=== PATIENT | male | born 1965 | race African-American/Black ===

== ENCOUNTER 2020-08-28 08:21 | Outpatient (CLI) | payer MEDICARE, SELFPAY ==
--- NOTE | ~2020-08-28 | XR_ITS ---
EXAMINATION: XR knee LT min 4V, XR knee RT min 4V DATE: 08/28/2020 09:39 INDICATION: Osteoarthritis TECHNIQUE: 1. Weight bearing anteroposterior, [place], sunrise, and lateral views of the left knee were obtain ed 2. Weight bearing anteroposterior, [place], sunrise, and lateral views of the right knee were obtai bina COMPARISON: None. FINDINGS: Left total knee arthroplasty without patellar resurfacing which is in essentially anatomic alignment. Normal alignment at the right knee. No fracture. Joint spaces are normal. No joint effusion at eithe r knee. Soft tissues are unremarkable. IMPRESSION: 1. Normal right knee. 2. Left total knee arthroplasty in essentially anatomic alignment. No left knee joint effusion or acu te osseous abnormality. Reviewed, dictated and finalized at location A. IMPRESSION: 1. Normal right knee. 2. Left total knee arthroplasty in essentially anatomic alignment. No left knee joint effusion or acute osseous abnormality.
--- NOTE | ~2020-08-28 | XR_ITS ---
EXAMINATION: XR sacroiliac joints min 3V, XR lumbar spine min 4V DATE: 08/28/2020 09:39 INDICATION: Osteoarthritis TECHNIQUE: 1. 5 views of the lumbar spine were obtained including anteroposterior, lateral, left and right obliq ue views and cone-down lateral lumbosacral projections. 2. Anteroposterior and left and right oblique views of the sacroiliac joints were obtained. COMPARISON: None. FINDINGS: Lumbar spine: 4 mm retrolisthesis L5 on S1. 4 mm left lateral listhesis L3 on L4. Straightening of the normal lumba r lordosis. Vertebral body heights are normal. Moderate disc height loss at L3-L4 and L4-L5. Mild dis c height loss at L2-L3 and L5-S1. No pars interarticularis defects. Multilevel mild lower lumbar pred ominant facet osteoarthritis. Mild bilateral hip osteoarthritis. IVC filter in expected position with proximal tip at the level of the inferior endplate of L2. Sacroiliac joints: There is mild widening of portions of the bilateral sacral iliac joints with erosions of the articula r cortices and surrounding subarticular sclerosis, right greater than left consistent with asymmetric mild to moderate left and moderate right sacroiliitis. Anastomotic suture line at the distal sigmoid colon. IMPRESSION: 1. Moderate lumbar spondylosis. 2. Mild to moderate left and moderate right sacroiliitis. Differential would include osteoarthritis, reactive versus psoriatic arthritis and gout. Enteropathic arthritis related to Crohn's disease or ul cerative colitis, ankylosing spondylitis and rheumatoid arthritis are also in the differential but ty pically present with a more symmetric pattern of disease. 3. IVC filter in expected position. Reviewed, dictated and finalized at location A. IMPRESSION: 1. Moderate lumbar spondylosis. 2. Mild to moderate left and moderate right sacroiliitis. Differential would in clude osteoarthritis, reactive versus psoriatic arthritis and gout. Enteropathi c arthritis related to Crohn's disease or ulcerative colitis, ankylosing spondy litis and rheumatoid arthritis are also in the differential but typically prese nt with a more symmetric pattern of disease. 3. IVC filter in expected position.
--- NOTE | ~2020-08-28 | XR_ITS ---
EXAMINATION: HAND-DANETTE ARTHRITIS 3+VIEWS DATE: 08/28/2020 09:39 INDICATION: Osteoarthritis TECHNIQUE: Posteroanterior, lateral, and oblique views of the left and of the right hands as well as a ballcatchers view of both hands were obtained. COMPARISON: None. FINDINGS: Right hand and wrist: Internally fixed right wrist arthrodesis with dorsal plate fixed with 3 screws to the mid to proximal aspect of the third metacarpal, from a screw at the distal aspect of the capitate and 3 additional s crews at the distal radius. The plate obscures portions of the central right carpus. There appears be osseous fusion to the lunate. There appears be residual lucency between the right scaphoid and dista l radius. No acute fracture. Polyarticular osteoarthritis, severe at the distal radioulnar, third met acarpophalangeal and second distal interphalangeal joint and moderate severity at the triscaphe, firs t carpometacarpal, third metacarpophalangeal and at the remaining distal interphalangeal joints and m ild at the remaining metacarpophalangeal and interphalangeal joints. Left hand and wrist: Left fifth mallet finger deformity. Otherwise normal alignment at the left hand and wrist. No fractur e. Severe osteoarthritis at the left distal radioulnar joint. Moderate osteoarthritis at the left fir st carpometacarpal and second and fifth distal interphalangeal joints and mild at the left wrist, tri scaphe and many of the remaining metacarpophalangeal and interphalangeal joints. IMPRESSION: 1. Right wrist arthrodesis with internal fixation extending from the third metacarpal to the carpus t o the distal radius. 2. Polyarticular osteoarthritis at the bilateral hands and wrists, moderate to severe on the right an d mild to moderate on the left. Reviewed, dictated and finalized at location A. IMPRESSION: 1. Right wrist arthrodesis with internal fixation extending from the third meta carpal to the carpus to the distal radius. 2. Polyarticular osteoarthritis at the bilateral hands and wrists, moderate to severe on the right and mild to moderate on the left.
--- NOTE | ~2020-08-28 | XR_ITS ---
EXAMINATION: XR foot LT standing 2V, XR foot RT standing 2V DATE: 08/28/2020 09:39 INDICATION: Osteoarthritis TECHNIQUE: 1. Dorsoplantar and lateral views of the left foot were obtained. 2. Dorsoplantar and lateral views of the right foot were obtained. COMPARISON: None. FINDINGS: Bilateral pes planus with flattening of the longitudinal arches. Bilateral hallux valgus measuring 43 degrees on the right and 38 degrees on the left. There are associated bilateral bunion deformities w ith hypertrophic and cystic change at the medial heads of the first metatarsals. Moderate osteoarthri tis at the right second and third tarsal metatarsal joints with prominent dorsal hypertrophic osteoph ytes. Mild osteoarthritis at several of the remaining bilateral tarsometatarsal joints, the bilateral first metatarsophalangeal joints and a few bilateral interphalangeal joints. Small left Achilles aleksandar caneal spur and small bilateral plantar calcaneal spurs. IMPRESSION: 1. Bilateral pes planus and hallux valgus. 2. Polyarticular osteoarthritis, moderate at the right second and third tarsal metatarsal joints and mild at multiple additional joints in the bilateral mid and forefeet. Reviewed, dictated and finalized at location A. IMPRESSION: 1. Bilateral pes planus and hallux valgus. 2. Polyarticular osteoarthritis, moderate at the right second and third tarsal metatarsal joints and mild at multiple additional joints in the bilateral mid a nd forefeet.
[2020-08-28 09:10] LABS: Basophils Percent Auto 0.4 % (0.2-1.2); Eosinophils Absolute Auto 0.2 K/mm3 (0-0.3); Eosinophils Percent Auto 3.2 % (0-4.4); Hematocrit 33.8 % (42.0-52.0); Hemoglobin 10.5 g/dL (14.0-18.0); Immature Granulocyte Absolute 0.01 K/mm3 (0.00-0.031); Immature Granulocyte Percent A 0.2 % (0-0.5); Lymphocytes Absolute Auto 1.91 K/mm3 (0.9-3.2); Lymphocytes Percent Auto 40.7 % (18.3-44.2); Mean Corpuscular HGB Conc 31.1 g/dl (32-36); Mean Corpuscular Hemoglobin 27.8 pg (26-34); Mean Corpuscular Volume 89.4 fl (80-100); Mean Platelet Volume 8.8 fl (7.4-10.4); Monocytes Absolute Auto 0.5 K/mm3 (0.1-0.6); Monocytes Percent Auto 9.6 % (2.6-8.5); Neutrophils Absolute Auto 2.2 K/mm3 (1.3-6.7); Neutrophils Percent Auto 45.9 % (45.5-73.1); Platelet Count Result 147 k/mm3 (150-375); Red Blood Count 3.78 M/mm3 (4.6-6.20); Red Cell Distribution Width 14.2 % (11.5-14.5); White Blood Count 4.7 K/mm3 (4.5-10.0)
[2020-08-28 09:20] LABS: Rheumatoid Factor < 8.6 IU/ML (<12)
[2020-08-28 09:22] LABS: Alanine Aminotransferase 27 U/L (4-50); Albumin Level 4.1 g/dL (3.5-5.1); Alkaline Phosphatase 79 U/L (38-126); Anion Gap 5 mmol/L (8-16); Aspartate Amino Transferase 40 U/L (17-59); Bilirubin,Total 0.4 mg/dL (0.2-1.3); Blood Urea Nitrogen 28 mg/dL (9-20); CRP 1.8 mg/dL (<1.0); Calcium 9.5 mg/dL (8.4-10.2); Carbon Dioxide 25 mmol/L (22-30); Chloride 112 mmol/L (98-107); Estimated Glomerular Filt Rate 54; Glucose 114 mg/dL (75-110); Potassium 5.2 mmol/L (3.4-5.0); Sodium 142 mmol/L (137-145); Uric Acid 6.8 mg/dL (3.5-8.5)
[2020-08-28 09:44] LABS: Erythrocyte Sedimentation Rate 37 mm/hr (0-20)
[2020-09-01 10:26] LABS: Anti Cyclic Citrullinated Pept <16 Units (<20)
[2020-09-09 12:10] LABS: SM Antibody <1.0; SM/RNP Antibody <1.0
[2020-09-10 11:22] LABS: SS-A <1.0; SS-B <1.0
== END 2020-08-28 08:22 | disposition home or self-care (01) ==
PROVIDERS: PCP Family Medicine; Visit Provider Internal Medicine
DX: M19.032 Primary osteoarthritis, left wrist (principal); M19.031 Primary osteoarthritis, right wrist; M19.042 Primary osteoarthritis, left hand; M19.041 Primary osteoarthritis, right hand; M10.9 Gout, unspecified; M47.816 Spondylosis without myelopathy or radiculopathy, lumbar region; M46.1 Sacroiliitis, not elsewhere classified; M19.072 Primary osteoarthritis, left ankle and foot; M20.11 Hallux valgus (acquired), right foot
CPT/HCPCS: 36415; 72110; 72202; 73130; 73564; 73620; 80053; 84550; 85025; 85652; 86038; 86140; 86200; 86225; 86235; 86430